=== PATIENT | female | born 1995 | race Caucasian/White ===

== ENCOUNTER 2016-12-25 12:00 | Emergency (ER) | payer BC, OTHER ==
[~2016-12-25] VITALS: Ht 160 cm; Wt 82.3 kg
[2016-12-25 13:54] VITALS: BP 121/62
== END 2016-12-25 13:54 | disposition home or self-care (01) ==
LOC: ED 12:00
DX: J20.9 Acute bronchitis, unspecified (principal)
CPT/HCPCS: Q0162

== ENCOUNTER 2016-12-26 18:37 | Emergency (ER) | payer BC, OTHER ==
[2016-12-26 20:01] LABS: BASOPHIL % 0.7 % (0-2); PLATELET COUNT 264 x10^3mcL (130-400); RED CELL DISTRIBUTION WIDTH 13.4 % (11.5-14.5)
[2016-12-26 20:05] LABS: CALCIUM 9.3 mg/dL (8.5-10.1); CARBON DIOXIDE 23.6 mmol/L (21-32); CHLORIDE SERUM 103 mmol/L (98-107); CREATININE SERUM 0.8 mg/dL (0.6-1.0); GFR1 > 60 mL/min; GLUCOSE SERUM 101 mg/dL (74-106); POTASSIUM SERUM 3.2 mmol/L (3.5-5.1); SODIUM SERUM 139 mmol/L (136-145)
[2016-12-26 20:10] LABS: ALBUMIN 4.3 g/dL (3.4-5.0); ALKALINE PHOSPHATASE 84 U/L (46-116); ALT/SGPT 21 U/L (14-59); AST/SGOT 11 U/L (15-37); BILIRUBIN TOTAL 0.6 mg/dL (0.20-1.00)
[2016-12-26 20:23] LABS: TOTAL PROTEIN, SERUM 8.5 g/dL (6.4-8.2)
[2016-12-26 22:36] VITALS: BP 116/78
== END 2016-12-26 22:36 | disposition home or self-care (01) ==
LOC: ED 18:37
PROVIDERS: Emergency Medicine
DX: O21.0 Mild hyperemesis gravidarum (principal); Z3A.01 Less than 8 weeks gestation of pregnancy
CPT/HCPCS: J2405; J7030

== ENCOUNTER 2016-12-29 11:05 | Inpatient (IN) | payer BC, OTHER ==
[~2016-12-29] VITALS: Ht 160 cm; Wt 80.1 kg
[2016-12-29 13:10] LABS: BASOPHIL % 1.3 % (0-2); PLATELET COUNT 295 x10^3mcL (130-400); RED CELL DISTRIBUTION WIDTH 13.3 % (11.5-14.5)
[2016-12-29 13:21] LABS: CALCIUM 9.6 mg/dL (8.5-10.1); CARBON DIOXIDE 25.4 mmol/L (21-32); CHLORIDE SERUM 98 mmol/L (98-107); CREATININE SERUM 0.8 mg/dL (0.6-1.0); GFR1 > 60 mL/min; GLUCOSE SERUM 112 mg/dL (74-106); POTASSIUM SERUM 3.1 mmol/L (3.5-5.1); SODIUM SERUM 136 mmol/L (136-145)
[2016-12-29 13:26] LABS: ALBUMIN 4.5 g/dL (3.4-5.0); ALKALINE PHOSPHATASE 79 U/L (46-116); ALT/SGPT 36 U/L (14-59); AST/SGOT 24 U/L (15-37); BILIRUBIN TOTAL 1.11 mg/dL (0.20-1.00); LIPASE 152 IU/L (73-393); TOTAL PROTEIN, SERUM 8.9 g/dL (6.4-8.2)
[2016-12-29 14:36] LABS: UA SPECIFIC GRAVITY 1.025 (1.005-1.035); microscopic required? YES; urine erythrocyte NEGATIVE (NEGATIVE)
[2016-12-29 15:29] VITALS: BP 119/71
[2016-12-29 15:31] VITALS: Ht 160 cm; Wt 80.1 kg
[2016-12-29 16:04] LABS: AMPHETAMINE QUAL UR NONE DETECTED (NEG <=1000)
[2016-12-29 16:21] LABS: CHOLESTEROL/HDL RATIO 4.1; MAGNESIUM 2.3 mg/dL (1.8-2.4); PHOSPHOROUS 3.4 mg/dL (2.5-4.9); T3 TOTAL 1.15 ng/mL
[2016-12-29 16:47] LABS: FREE T4 1.31 ng/dL (0.76-1.46); FREE THYROXINE INDEX 4.3 ug/dL (1.4-4.5); T4(THYROXINE) 13.3 ug/dL (4.7-13.3)
[2016-12-29 20:45] VITALS: BP 112/63
[2016-12-30 05:34] VITALS: BP 104/68
[2016-12-30 07:17] LABS: BASOPHIL % 0.8 % (0-2); PLATELET COUNT 234 x10^3mcL (130-400)
[2016-12-30 07:18] LABS: CALCIUM 8.5 mg/dL (8.5-10.1); CARBON DIOXIDE 26.4 mmol/L (21-32); CHLORIDE SERUM 103 mmol/L (98-107); CREATININE SERUM 0.6 mg/dL (0.6-1.0); GFR1 > 60 mL/min; GLUCOSE SERUM 91 mg/dL (74-106); MAGNESIUM 2.2 mg/dL (1.8-2.4); PHOSPHOROUS 3.2 mg/dL (2.5-4.9); SODIUM SERUM 138 mmol/L (136-145)
[2016-12-30 10:06] VITALS: BP 114/79
[2016-12-30 13:22] VITALS: BP 109/41
[2016-12-30 17:07] VITALS: BP 119/73
[2016-12-30 22:00] VITALS: BP 103/58
[2016-12-31 06:05] VITALS: BP 128/75
[2016-12-31 06:26] LABS: BASOPHIL % 0.3 % (0-2); PLATELET COUNT 234 x10^3mcL (130-400); RED CELL DISTRIBUTION WIDTH 13.4 % (11.5-14.5)
[2016-12-31 06:59] LABS: CALCIUM 8.9 mg/dL (8.5-10.1); CARBON DIOXIDE 23.3 mmol/L (21-32); CHLORIDE SERUM 102 mmol/L (98-107); CREATININE SERUM 0.6 mg/dL (0.6-1.0); GFR1 > 60 mL/min; GLUCOSE SERUM 99 mg/dL (74-106); MAGNESIUM 1.9 mg/dL (1.8-2.4); PHOSPHOROUS 3.2 mg/dL (2.5-4.9); POTASSIUM SERUM 3.6 mmol/L (3.5-5.1); SODIUM SERUM 137 mmol/L (136-145)
[2016-12-31 08:00] VITALS: BP 127/75
[2016-12-31 10:55] VITALS: BP 123/81
[2016-12-31 14:49] VITALS: BP 124/65
[2016-12-31 18:18] VITALS: BP 126/80
[2016-12-31 21:40] VITALS: BP 131/80
[2017-01-01 05:04] VITALS: BP 115/76
[2017-01-01 06:24] LABS: BASOPHIL % 0.7 % (0-2); PLATELET COUNT 233 x10^3mcL (130-400)
[2017-01-01 06:47] LABS: CALCIUM 8.8 mg/dL (8.5-10.1); CARBON DIOXIDE 25.9 mmol/L (21-32); CHLORIDE SERUM 101 mmol/L (98-107); CREATININE SERUM 0.7 mg/dL (0.6-1.0); GFR1 > 60 mL/min; GLUCOSE SERUM 100 mg/dL (74-106); MAGNESIUM 2.1 mg/dL (1.8-2.4); PHOSPHOROUS 3.6 mg/dL (2.5-4.9); POTASSIUM SERUM 3.2 mmol/L (3.5-5.1); SODIUM SERUM 136 mmol/L (136-145)
[2017-01-01 10:53] VITALS: BP 115/66
[2017-01-01] MEDS ORDERED: ZOFRAN ODT4 MG SL (12:38)
[2017-01-01 12:59] VITALS: BP 115/66
== END 2017-01-01 14:18 | disposition home or self-care (01) | DRG 781 ==
LOC: ED 11:05 → DU 14:32
PROVIDERS: Emergency Medicine; ADMIT Family Medicine
DX: O21.1 Hyperemesis gravidarum with metabolic disturbance (principal); N17.0 Acute kidney failure with tubular necrosis; O26.831 Pregnancy related renal disease, first trimester; F12.10 Cannabis abuse, uncomplicated; Z3A.01 Less than 8 weeks gestation of pregnancy; O99.281 Endocrine, nutritional and metabolic diseases complicating pregnancy, first trimester; E87.6 Hypokalemia; E86.0 Dehydration; O99.211 Obesity complicating pregnancy, first trimester; E66.9 Obesity, unspecified
CPT/HCPCS: 83880; 84439; J1200; J2405; J2765; J3480; J3490; J7030; Q0092; Q0162

== ENCOUNTER 2017-03-10 23:22 | Inpatient (IN) | payer BC, OTHER ==
[~2017-03-10] VITALS: Ht 162.6 cm; Wt 64.0 kg
[~2017-03-10 23:22] MED LIST: ZOFRAN ODT4 MG SL
[2017-03-10 23:27] VITALS: Ht 162.6 cm; Wt 64.0 kg
[2017-03-11 00:38] LABS: PLATELET COUNT 432 x10^3mcL (130-400); RED CELL DISTRIBUTION WIDTH 15.3 % (11.5-14.5)
[2017-03-11 00:39] LABS: BASOPHIL % 0.4 % (0-2)
[2017-03-11 00:42] LABS: CREATININE SERUM 2.8 mg/dL (0.6-1.0)
[2017-03-11 00:45] LABS: CARBON DIOXIDE 42.5 mmol/L (21-32); POTASSIUM SERUM 1.8 mmol/L (3.5-5.1)
[2017-03-11 03:04] LABS: FREE T4 1.7 ng/dL (0.76-1.46); FREE THYROXINE INDEX 8.5 ug/dL (1.4-4.5); T4(THYROXINE) 32.8 ug/dL (4.7-13.3)
[2017-03-11 03:17] LABS: HDL CHOLESTEROL 56 mg/dL (40-60); LIPASE 155 IU/L (73-393); MAGNESIUM 2.2 mg/dL (1.8-2.4); PHOSPHOROUS 4.9 mg/dL (2.5-4.9)
[2017-03-11 03:21] VITALS: BP 137/69
[2017-03-11 04:05] LABS: AMYLASE 123 U/L (25-115); CHOLESTEROL 393 mg/dL (<200); TRIGLYCERIDES 570 mg/dL (<150)
[2017-03-11 05:30] LABS: PLATELET COUNT 321 x10^3mcL (130-400)
[2017-03-11 05:38] LABS: RED CELL DISTRIBUTION WIDTH 14.6 % (11.5-14.5)
[2017-03-11 05:53] LABS: CALCIUM 8.6 mg/dL (8.5-10.1); CARBON DIOXIDE 37.1 mmol/L (21-32); CREATININE SERUM 2.1 mg/dL (0.6-1.0)
[2017-03-11 06:11] LABS: POTASSIUM SERUM 1.8 mmol/L (3.5-5.1)
[2017-03-11 06:28] VITALS: BP 122/90
[2017-03-11 09:57] VITALS: BP 122/79
[2017-03-11 13:50] LABS: T3 TOTAL 4.18 ng/mL
[2017-03-11 15:05] VITALS: BP 121/83
[2017-03-11 15:09] LABS: BASOPHIL % 1.8 % (0-2); PLATELET COUNT 285 x10^3mcL (130-400); RED CELL DISTRIBUTION WIDTH 14.3 % (11.5-14.5)
[2017-03-11 15:56] LABS: CREATININE SERUM 1.5 mg/dL (0.6-1.0)
[2017-03-11 16:04] LABS: CALCIUM 8.5 mg/dL (8.5-10.1)
[2017-03-11 16:14] LABS: CARBON DIOXIDE 35.5 mmol/L (21-32)
[2017-03-11 16:33] LABS: POTASSIUM SERUM 1.9 mmol/L (3.5-5.1)
[2017-03-11 17:57] VITALS: BP 116/68
[2017-03-11 20:14] LABS: CALCIUM 8.3 mg/dL (8.5-10.1); CARBON DIOXIDE 36.2 mmol/L (21-32); CREATININE SERUM 1.6 mg/dL (0.6-1.0)
[2017-03-11 20:27] LABS: POTASSIUM SERUM 2.3 mmol/L (3.5-5.1)
[2017-03-11 20:57] VITALS: BP 118/74
[2017-03-12 05:57] VITALS: BP 11/64; BP 111/60
[2017-03-12 06:16] LABS: BASOPHIL % 0.4 % (0-2); PLATELET COUNT 238 x10^3mcL (130-400)
[2017-03-12 06:22] LABS: RED CELL DISTRIBUTION WIDTH 15.9 % (11.5-14.5)
[2017-03-12 06:43] LABS: CALCIUM 8.1 mg/dL (8.5-10.1); CARBON DIOXIDE 32.7 mmol/L (21-32); CHLORIDE SERUM 95 mmol/L (98-107); CREATININE SERUM 1.1 mg/dL (0.6-1.0); GFR1 > 60 mL/min; GLUCOSE SERUM 92 mg/dL (74-106); MAGNESIUM 1.6 mg/dL (1.8-2.4); SODIUM SERUM 134 mmol/L (136-145)
[2017-03-12 08:55] VITALS: BP 119/72
[2017-03-12 13:10] VITALS: BP 110/72
[2017-03-12 13:33] LABS: CALCIUM 8.5 mg/dL (8.5-10.1); CARBON DIOXIDE 30.9 mmol/L (21-32); CHLORIDE SERUM 98 mmol/L (98-107); CREATININE SERUM 0.9 mg/dL (0.6-1.0); GFR1 > 60 mL/min; GLUCOSE SERUM 97 mg/dL (74-106); POTASSIUM SERUM 3.7 mmol/L (3.5-5.1); SODIUM SERUM 135 mmol/L (136-145)
[2017-03-12 14:32] VITALS: BP 110/72
[2017-03-12] MEDS ORDERED: ZOF4 PO (15:01)
[2017-03-12] MEDS ORDERED: REGLAN10 M1 PO (15:04)
== END 2017-03-12 15:47 | disposition home or self-care (01) | DRG 781 ==
LOC: ED 23:22 → DU 03-11 01:24
PROVIDERS: Emergency Medicine; Family Medicine
DX: O21.1 Hyperemesis gravidarum with metabolic disturbance (principal); N17.0 Acute kidney failure with tubular necrosis; R65.10 Systemic inflammatory response syndrome (SIRS) of non-infectious origin without acute organ dysfunction; Z3A.16 16 weeks gestation of pregnancy
CPT/HCPCS: 83880; 84439; J2405; J2550; J2765; J3480; J7030; Q0092

== ENCOUNTER 2017-03-23 19:28 | Observation (INO) | payer BC, OTHER ==
[~2017-03-23] VITALS: Ht 162.6 cm; Wt 73.2 kg
[~2017-03-23 19:28] MED LIST changes: +REGLAN10 M1 PO; +ZOF4 PO
[2017-03-23 20:51] LABS: BASOPHIL % 0.5 % (0-2); PLATELET COUNT 340 x10^3mcL (130-400)
[2017-03-23 21:02] LABS: ALKALINE PHOSPHATASE 50 U/L (46-116); ALT/SGPT 20 U/L (14-59); AST/SGOT 16 U/L (15-37); BILIRUBIN TOTAL 0.54 mg/dL (0.20-1.00); CARBON DIOXIDE 23.6 mmol/L (21-32); CHLORIDE SERUM 102 mmol/L (98-107); CREATININE SERUM 0.6 mg/dL (0.6-1.0); GFR1 > 60 mL/min; GLUCOSE SERUM 86 mg/dL (74-106); LIPASE 97 IU/L (73-393); SODIUM SERUM 139 mmol/L (136-145); TOTAL PROTEIN, SERUM 6.8 g/dL (6.4-8.2)
[2017-03-23 21:06] LABS: POTASSIUM SERUM 2.8 mmol/L (3.5-5.1)
[2017-03-23 21:08] LABS: RED CELL DISTRIBUTION WIDTH 18.3 % (11.5-14.5)
[2017-03-23] MEDS ORDERED: DICLEGIS1 TCP PO (21:19)
[2017-03-23 23:55] LABS: microscopic required? YES; urine erythrocyte NEGATIVE (NEGATIVE)
[2017-03-24 00:01] LABS: AMPHETAMINE QUAL UR NONE DETECTED (NEG <=1000)
[2017-03-24 00:45] VITALS: BP 126/87
[2017-03-24 00:54] VITALS: Ht 162.6 cm; Wt 73.2 kg
[2017-03-24 01:50] LABS: MAGNESIUM 1.7 mg/dL (1.8-2.4); PHOSPHOROUS 3.7 mg/dL (2.5-4.9)
[2017-03-24 01:55] LABS: FREE T4 0.78 ng/dL (0.76-1.46); FREE THYROXINE INDEX 2.4 ug/dL (1.4-4.5); T4(THYROXINE) 12.6 ug/dL (4.7-13.3)
[2017-03-24 03:24] LABS: T3 TOTAL 2.12 ng/mL
[2017-03-24 05:34] VITALS: BP 97/60
[2017-03-24 07:18] LABS: BASOPHIL % 0.6 % (0-2); PLATELET COUNT 304 x10^3mcL (130-400)
[2017-03-24 07:19] LABS: RED CELL DISTRIBUTION WIDTH 18.1 % (11.5-14.5)
[2017-03-24 07:21] LABS: CALCIUM 8.1 mg/dL (8.5-10.1); CARBON DIOXIDE 21.9 mmol/L (21-32); CHLORIDE SERUM 105 mmol/L (98-107); CREATININE SERUM 0.5 mg/dL (0.6-1.0); GFR1 > 60 mL/min; GLUCOSE SERUM 70 mg/dL (74-106); MAGNESIUM 1.8 mg/dL (1.8-2.4); PHOSPHOROUS 2.9 mg/dL (2.5-4.9); POTASSIUM SERUM 3.5 mmol/L (3.5-5.1); SODIUM SERUM 139 mmol/L (136-145)
[2017-03-24 08:18] VITALS: BP 101/53
[2017-03-24 09:17] VITALS: BP 111/59
[2017-03-24 10:19] VITALS: BP 111/59
[2017-03-24 11:19] LABS: IRON 74 ug/dL (50-170); TOTAL IRON BINDING CAPACITY 292 ug/dL (250-450)
[2017-03-24 11:21] LABS: RED BLOOD CELLS 2.36 M/mm3 (4.10-5.10)
[2017-03-24] MEDS ORDERED: MAC100 PO (12:34)
[2017-03-24 13:31] VITALS: BP 117/71
[2017-03-24] MEDS ORDERED: LAC PO (14:17)
== END 2017-03-24 14:16 | disposition home or self-care (01) | DRG 781 ==
LOC: ED 19:28 → DU 23:52
PROVIDERS: Emergency Medicine; Family Medicine
DX: O21.1 Hyperemesis gravidarum with metabolic disturbance (principal); O23.42 Unspecified infection of urinary tract in pregnancy, second trimester; O99.012 Anemia complicating pregnancy, second trimester; D64.9 Anemia, unspecified; E83.42 Hypomagnesemia; E78.5 Hyperlipidemia, unspecified; Z3A.19 19 weeks gestation of pregnancy
CPT/HCPCS: 83880; 84439; G0378; J1200; J2765; J3475; J3480; J3490; J7030; Q0092

== ENCOUNTER 2017-05-06 18:38 | Emergency (ER) | payer BC, OTHER ==
[~2017-05-06] VITALS: Ht 157.5 cm; Wt 66.7 kg
[~2017-05-06 18:38] MED LIST changes: +DICLEGIS1 TCP PO; +LAC PO; +MAC100 PO
[2017-05-06 21:11] LABS: BASOPHIL % 0.2 % (0-2); PLATELET COUNT 312 x10^3mcL (130-400); RED CELL DISTRIBUTION WIDTH 13.6 % (11.5-14.5)
[2017-05-06 22:09] LABS: BILIRUBIN TOTAL 0.5 mg/dL (0.20-1.00); CALCIUM 9.2 mg/dL (8.5-10.1); CARBON DIOXIDE 34.5 mmol/L (21-32); CREATININE SERUM 1.9 mg/dL (0.6-1.0); TOTAL PROTEIN, SERUM 7.5 g/dL (6.4-8.2)
[2017-05-06 22:15] LABS: ALBUMIN 3.3 g/dL (3.4-5.0); POTASSIUM SERUM 2.4 mmol/L (3.5-5.1)
[2017-05-06 22:34] VITALS: BP 129/74
== END 2017-05-07 00:04 | disposition home or self-care (01) ==
LOC: ED 18:38
PROVIDERS: Emergency Medicine
DX: O21.1 Hyperemesis gravidarum with metabolic disturbance (principal); Z3A.01 Less than 8 weeks gestation of pregnancy
CPT/HCPCS: 83880; J0780; J7030; J7042; Q0162